=== PATIENT | female | born 2000 | race Caucasian/White ===

== ENCOUNTER → 2019-01-03 | Outpatient (REF) | payer OTHER | LOC: M SFHCLERA 14:21 | PROVIDERS: ATTEND Nurse Practitioner Family | DX: R68.89 Other general symptoms and signs (principal) ==

== ENCOUNTER → 2019-08-12 | Outpatient (CLI) | payer OTHER ==
--- NOTE | 2019-08-12 19:32 | REP ---
Right wrist four views : There is no fracture or dislocation. Mineralization and joint spaces are normal. There are no calcifications or foreign bodies. Impression: Negative right wrist . Electronically Signed by Shayne Mejia MD 08/12/2019 07:24 P
== END ==
LOC: M LRY 19:09
PROVIDERS: ATTEND Physician Assistant
DX: M25.531 Pain in right wrist (principal)